=== PATIENT | male | born 1965 | race Caucasian/White ===

== ENCOUNTER 2020-09-19 08:41 | Observation (INO) ==
[2020-09-19] MEDS ORDERED: NITROSTAT SL PRN (08:57)
[2020-09-19] MEDS ORDERED: ASPIRIN PO ONE (08:57)
[2020-09-19 09:01] VITALS: BMI 21.4
[2020-09-19] MEDS ORDERED: NS 1000 ML 1,000 ML ONE (09:08)
[2020-09-19] MEDS ORDERED: ASPIRIN ONE (09:08)
[2020-09-19] MEDS ORDERED: NITROSTAT ONE (09:08)
[2020-09-19] MEDS: NS 1000 ML 1,000 ML IV SCH ×2 (09:15→13:34)
--- NOTE | 2020-09-19 09:31 | RAD ---
HISTORYChest painSTUDYChest AP [id number] heart is within normal limits in size. The valerie are normal. The lungs are hyperinflated but free of acute infiltrates. Mild bilateral interstitial lung changes are present and stable. No pleural effusions are identified. Bony thorax is unremarkable. Biapical blebs are identified.IMPRESSIONHyperinflation with mild chronic appearing interstitial lung changes present. Consistent with COPD in the appropriate clinical settingNo acute infiltratesElectronically signed by: CARLYN CASTILLO (September 19, 2020 09:29:07)
[2020-09-19 09:32] LABS: BASOPHILS # (AUTO) 0.1 X10^3/uL (0.0-0.1); BASOPHILS % (AUTO) 0.9 % (0.2-1.0); EOSINOPHILS # (AUTO) 0.3 x10^3/uL (0.0-0.2); EOSINOPHILS % (AUTO) 3.8 % (0.9-2.9); HEMATOCRIT 44.3 % (42.0-54.0); HEMOGLOBIN 15.6 g/dL (13.5-18.0); LYMPHOCYTES # (AUTO) 1.3 X10^3/uL (1.3-2.9); LYMPHOCYTES % (AUTO) 19.4 % (21.0-51.0); MEAN CORPUSCULAR HEMOGLOBIN 33.5 pg (27.0-34.0); MEAN CORPUSCULAR HGB CONC 35.1 g/dL (33.0-35.0); MEAN CORPUSCULAR VOLUME 95.3 fL (80.0-100.0); MEAN PLATELET VOLUME 8.1 fL (7.4-11.0); MONOCYTES # (AUTO) 0.6 x10^3/uL (0.3-0.8); MONOCYTES % (AUTO) 8.1 % (0.0-13.0); NEUTROPHILS # (AUTO) 4.6 x10^3/uL (2.2-4.8); NEUTROPHILS % (AUTO) 67.8 % (42.0-75.0); PLATELET COUNT 217 X10^3/uL (150.0-450.0); RED BLOOD COUNT 4.65 X10^6/uL (4.7-6.0); RED CELL DISTRIBUTION WIDTH 13.3 % (11.6-16.5); WHITE BLOOD COUNT 6.8 X10^3/uL (3.6-10.0)
[2020-09-19 09:52] LABS: BLOOD UREA NITROGEN 13 mg/dL (7-18); CARBON DIOXIDE 32.3 mmol/L (21-32); CHLORIDE 106 mmol/L (98-107); CREATININE 1.13 mg/dL (0.70-1.30); SODIUM 142 mmol/L (136-145); TROPONIN I < 0.02 ng/mL (0-1.5); eGFR NON BLACK RACES > 60 (>60)
[2020-09-19 09:56] LABS: ALANINE AMINOTRANSFERASE 16 Units/L (12-78); ALBUMIN 3.8 g/dL (3.4-5.0); ALKALINE PHOSPHATASE 53 Units/L (46-116); ASPARTATE AMINO TRANSFERASE 17 Units/L (15-37); CKMB % 1.4 % (<4); CREATINE KINASE 72 Units/L (39-308); CREATINE KINASE MB < 1.0 ng/mL (0-4.0); MAGNESIUM 2.1 mg/dL (1.7-2.9); TOTAL PROTEIN 7.3 g/dL (6.4-8.2)
--- NOTE | 2020-09-19 09:58 | DR.CP ---
HPI Time Seen Time Seen by Provider: 09/19/20 08:57 PCP Primary Care Physician: none HPI Comment HPI Comment: Patient here for chest pain, non-radiating, that started several days ago. Pt denies n/v, denies diaphoresis. States he thought he had a pulled muscle in his chest but pain continued at rest. Pt was seen yesterday in the ED, had negative cardiac labs, was going to be admitted but left AMA. Notes that when he got home the chest pain recurred and was waxing and waning all night. he tried to go to work this morning, but was directed by his boss to return to the ED. Notes that pain is still present, but not as bad as yesterday. Complaint Chief Complaint:: Patient here for chest pain, non-radiating, that started several days ago. Pt denies n/v, denies diaphoresis. States he thought he had a pulled muscle in his chest but pain continued at rest. Pt was seen yesterday in the ED, had negative cardiacs, was going to be admitted but left AMA. COVID-19 Coronavirus risk:travel/contact w/high risk person: No Has patient experienced Coronavirus symptoms: No Coronavirus symptoms experienced: Coughing Source History Provided: Patient Timing Onset of Chief Complaint: 09/16/20 Location Chest Pain Radiation Location: None Associated Signs and Symptoms Associated Signs and Symptoms: Shortness of Breath PMH PMH Past Medical History: No Past Medical History: COPD Past Surgical History: No Family History History of Family Medical Conditions: Yes Family Medical History: Diabetes Mellitus Social History Alcohol Use: None Do you use any recreational Drugs:: No Lives With: Spouse Lives Where: Home Travel Risk Coronavirus risk:travel/contact w/high risk person: No Has patient experienced Coronavirus symptoms: No Coronavirus symptoms experienced: Coughing Infectious screening Have you traveled outside the country in the last 6 months?: No Isolation: Standard ROS Review of Systems Constitutional: See HPI Cardiovascular: Chest Pain All Other Systems: Reviewed and Negative PE Vitals Vitals: Temperature 98.4 F Pulse Rate [Left] 51 Pulse Rate 58 Respiratory Rate 13 Blood Pressure [Right Arm] 93/53 Blood Pressure 111/68 O2 Sat by Pulse Oximetry 99 General Limitations: No Limitations General Appearance: Alert and In No Apparent Distress Head Head Exam: Normal Inspection, Atraumatic and Normocephalic Eyes Eye exam: Normal Appearance and EOMI ENT ENT Exam: Normal Exam Chest Chest Inspection: Normal Inspection and Symmetric Chest Wall Rise Respiratory Respiratory Exam: Normal Lung Sounds Bilat Respiratory Exam: Bilateral: Clear to Auscultation Cardiovascular Cardiovascular Exam: Regular Rate, Normal Rhythm and Normal Heart Sounds Abdominal Exam Abdominal Exam: Normal Inspection, Normal Bowel Sounds and Soft Extremities Extremities Exam: Normal Inspection Neurologic Neurological Exam: Alert and Oriented X3 Psychiatric Psychiatric Exam: Normal Affect and Normal Mood Skin Skin Exam: Warm, Dry and Intact COURSE Reevaluation 1st: Unchanged (unremarkable ED course.) Consultation Called: 10:43 Consultation Comments: Spoke with Dr. Ambrose who accepts patient for admission. ROR Labs Reviewed Laboratory Results Reviewed?: Yes Result Diagrams: 09/19/20 09:13 09/19/20 09:13 Laboratory: WBC 6.8 X10^3/uL (3.6-10.0) 09/19/20 09:13 RBC 4.65 X10^6/uL (4.7-6.0) L 09/19/20 09:13 Hgb 15.6 g/dL (13.5-18.0) 09/19/20 09:13 Hct 44.3 % (42.0-54.0) 09/19/20 09:13 MCV 95.3 fL (80.0-100.0) 09/19/20 09:13 MCH 33.5 pg (27.0-34.0) 09/19/20 09:13 MCHC 35.1 g/dL (33.0-35.0) H 09/19/20 09:13 RDW 13.3 % (11.6-16.5) 09/19/20 09:13 Plt Count 217 X10^3/uL (150.0-450.0) 09/19/20 09:13 MPV 8.1 fL (7.4-11.0) 09/19/20 09:13 Neut % (Auto) 67.8 % (42.0-75.0) 09/19/20 09:13 Lymph % (Auto) 19.4 % (21.0-51.0) L 09/19/20 09:13 [place]well % (Auto) 8.1 % (0.0-13.0) 09/19/20 09:13 Eos % (Auto) 3.8 % (0.9-2.9) H 09/19/20 09:13 Baso % (Auto) 0.9 % (0.2-1.0) 09/19/20 09:13 Neut # (Auto) 4.6 x10^3/uL (2.2-4.8) 09/19/20 09:13 Lymph # (Auto) 1.3 X10^3/uL (1.3-2.9) 09/19/20 09:13 Caswell # (Auto) 0.6 x10^3/uL (0.3-0.8) 09/19/20 09:13 Eos # (Auto) 0.3 x10^3/uL (0.0-0.2) H 09/19/20 09:13 Baso # (Auto) 0.1 X10^3/uL (0.0-0.1) 09/19/20 09:13 Absolute Nucleated RBC 0.1 /100WBC 09/19/20 09:13 PT 14.0 SECONDS (11.8-14.3) 09/19/20 09:13 INR Target Range - 09/19/20 09:13 INR 1.13 (0.8-1.3) 09/19/20 09:13 APTT 32.2 SECONDS (22.9-36.5) 09/19/20 09:13 PTT Comment - 09/19/20 09:13 Sodium 142 mmol/L (136-145) 09/19/20 09:13 Corrected Sodium TNP 09/19/20 09:13 Potassium 4.2 mmol/L (3.5-5.1) 09/19/20 09:13 Chloride 106 mmol/L (98-107) 09/19/20 09:13 Carbon Dioxide 32.3 mmol/L (21-32) H 09/19/20 09:13 BUN 13 mg/dL (7-18) 09/19/20 09:13 Creatinine 1.13 mg/dL (0.70-1.30) 09/19/20 09:13 Est GFR (MDRD) Af Amer > 60 (>60) 09/19/20 09:13 Est GFR (MDRD) Non-Af > 60 (>60) 09/19/20 09:13 Glucose 90 mg/dL (65-99) 09/19/20 09:13 Calcium 9.0 mg/dL (8.5-10.1) 09/19/20 09:13 Corrected Calcium TNP 09/19/20 09:13 Magnesium 2.1 mg/dL (1.7-2.9) 09/19/20 09:13 Total Bilirubin 0.50 mg/dL (0.2-1.0) 09/19/20 09:13 AST 17 Units/L (15-37) 09/19/20 09:13 ALT 16 Units/L (12-78) 09/19/20 09:13 Alkaline Phosphatase 53 Units/L (46-116) 09/19/20 09:13 Creatine Kinase 72 Units/L (39-308) 09/19/20 09:13 CK-MB (CK-2) < 1.0 ng/mL (0-4.0) 09/19/20 09:13 CK/CKMB % Calc 1.4 % (<4) 09/19/20 09:13 Troponin I < 0.02 ng/mL (0-1.5) 09/19/20 09:13 Total Protein 7.3 g/dL (6.4-8.2) 09/19/20 09:13 Albumin 3.8 g/dL (3.4-5.0) 09/19/20 09:13 Globulin 3.5 g/dL (2.5-4.5) 09/19/20 09:13 Albumin/Globulin Ratio 1.1 Ratio (1.1-2.1) 09/19/20 09:13 XRAY X-ray Results: HISTORY Chest pain STUDY Chest AP portable COMPARISON 09/18/2020 FINDINGS The heart is within normal limits in size. The valerie are normal. The lungs are hyperinflated but free of acute infiltrates. Mild bilateral interstitial lung changes are present and stable. No pleural effusions are identified. Bony thorax is unremarkable. Biapical blebs are identified. IMPRESSION Hyperinflation with mild chronic appearing interstitial lung changes present. Consistent with COPD in the appropriate clinical setting No acute infiltrates Electronically signed by: CARLYN CASTILLO (September 19, 2020 09:29:07) Opioid Opioid Risk Tool Age (Ty box if 16-45): No History of Preadolescent Sexual Abuse: No Total: 0 Total Score Risk Category: Low Risk Copyright: Bacilio LORENZO predicting aberrant behaviors Diagnosis Discharge Problem: Chest pain
[2020-09-19] MEDS ORDERED: NS 1000 ML 1,000 ML IV SCH (11:00)
[2020-09-19 16:30] VITALS: BP 103/58
[2020-09-19 17:04] LABS: CKMB % 1.7 % (<4); CREATINE KINASE 59 Units/L (39-308); CREATINE KINASE MB < 1.0 ng/mL (0-4.0); TROPONIN I < 0.02 ng/mL (0-1.5)
[2020-09-20] MEDS ORDERED: ASPIRIN PO SCH (09:00)
[2020-09-20] MEDS ORDERED: PLAVIX PO SCH (09:00)
--- NOTE | 2020-10-08 15:39 | DR.CARTERS ---
Short Stay Summary - Admission Date Date of Admission: 09/19/20 - Discharge Date Discharge Date: 09/19/20 - Admission Diagnoses (1) Chest pain, rule out acute myocardial infarction Status: Acute - Hospital Course Hospital Course: TIME SPENT ON CLINICAL ASSESSMENT, REVIEWING LABS AND IMAGING, DECISION MAKING, AND DOCUMENTATION WAS GREATER THAN 75 MINUTES. IS A 55 YEAR OLD WHITE MALE WHO PRESENTED TO THE ER FOR COMPLAINTS OF CHEST PAIN AND SHORTNESS OF BREATH. PAIN STARTED 3-4 DAYS PRIOR. PAIN COMES AND GOES. HE DESCRIBED IT NON-RADIATING, PRESSURE AND SHARP AT TIMES. PAIN ON ARRIVAL TO THE ER WAS RATED A 4/10. HE DENIED N/V OR DIAPHORESIS. PATIENT WAS SEEN IN THE ER ONE DAY PRIOR. A CARDIAC WORKUP WAS DONE AT THAT TIME AND WAS NEGATIVE. HE WAS GOING TO BE ADMITTED FOR OBSERVATION, BUT HE SIGNED OUT AMA. PATIENTS PMH INCLUDES COPD. ON ARRIVAL TO THE ER, VITALS WERE 98.4-58-16-99%-118/70. LABS WERE OBTAINED. ABNORMAL LAB VALUES INCLUDE THE FOLLOWING: RBC 4.65, CARBON DIOXIDE 32.3. CARDIAC ENZYMES WERE WITHIN NORMAL LIMITS. COVID-19 NEGATIVE. EKG REVEALED: SINUS RHYTHM WITH HR 58. CHEST XRAY REVEALED: Hyperinflation with mild chronic appearing interstitial lung changes present. Consistent with COPD in the appropriate clinical setting. No acute infiltrates. IN THE ER, HE WAS GIVEN ASPIRIN 325MG PO X 1 DOSE, NITROSTAT 0.4MG SL Q5M PRN, AND STARTED NORMAL SALINE AT 75 ML/HR. HE WAS ADMITTED TO THE HOSPITAL FOR FURTHER EVALUATION AND TREATMENT OF CHEST PAIN RULE OUT ACUTE GA. WE PLANNED TO OBTAIN SERIAL CARDIAC ENZYMES AND EKGS. OTHERWISE, WE PLANNED TO F OLLOW UP WITH AM LABS AND CONTINUE TO MONITOR. A SECOND SET OF CARDIAC ENZYMES WERE REPEATED AT 16:15. THEY WERE WITHIN NORMAL LIMITS. EKG WAS REPEATED AND REVEALED SINUS RHYTHM WITH HR 58. AT APROXIMATELY 18:43, PATIENT REPORTED TO NURSE THAT HE WISHED TO SIGN OUT AMA. RISKS/BENEFITS WERE DISCUSSED, BUT PATIENT WISHED TO PROCEED WITH SIGNING OUT AGAINST MEDICAL ADVICE. PATIENT WAS WITHOUT COMPLAINTS AND EXPRESSED RELIEF OF CHEST PAIN AT THAT TIME. PATIENT LEFT AMA WITH FAMILY IN STABLE CONDITION. TIME SPENT ON CLINICAL ASSESSMENT, REVIEWING LABS AND IMAGING, DECISION MAKING, AND DOCUMENTATION WAS GREATER THAN 75 MINUTES. - Discharge Medications Discharge Medications: Home Medication List NK 09/19/20 [History] Prescriptions: Prescription drug monitoring program results: PDMP was not reviewed - Discharge Plan Disposition: AGAINST MEDICAL ADVICE Condition: Stable - Follow up/Referrals Follow up/Referrals: NFD,None [Primary Care Provider] - 1 WEEK - Instructions
== END 2020-09-19 18:50 | disposition left against medical advice (07) ==
LOC: MED/SURG 08:47 → ER 08:47 → MED/SURG 12:31
PROVIDERS: ADMIT Internal Medicine; ATTEND Internal Medicine
DX: R07.89 Other chest pain; Z20.822 Contact with and (suspected) exposure to COVID-19; R06.02 Shortness of breath; J44.9 Chronic obstructive pulmonary disease, unspecified; Z53.29 Procedure and treatment not carried out because of patient's decision for other reasons